=== PATIENT | male | born 1970 | race Caucasian/White ===

== ENCOUNTER 2018-04-20 13:45 | Emergency (ER) | payer BC ==
--- NOTE | 2018-04-20 14:13 | EDM.PDOC ---
ED HPI GENERAL MEDICAL PROBLEM - General Chief Complaint: Cardiovascular Problem Stated Complaint: DIZZY,SOB,CHEST PAIN Time Seen by Provider: 04/20/18 14:06 Source of Information: Reports: Patient History Limitations: Reports: No Limitations - History of Present Illness INITIAL COMMENTS - FREE TEXT/NARRATIVE: Patient is a 47-year-old gentleman who presents to the emergency department this afternoon with a complaint of chest pain and shortness of breath. Patient states that this morning while working. He was lifting material and developed left lower chest discomfort. Patient states that this is been going on and off for the past month. He states it occurs with activity and resolves spontaneously with rest. Patient describes pain as a squeezing sensation and localized to left lower chest. Patient states recently he has also feels short of breath with moderate ambulation. Patient denies family history of early cardiac disease, fever, nausea, vomiting, diarrhea, abdominal pain, out of country travel, any trauma, headache, anxiety or panic attacks. Onset: Gradual Duration: Week(s): Location: Reports: Chest Quality: Reports: Other (Pressure) Improves with: Reports: Rest Worsens with: Reports: Other (Activity) Context: Reports: Activity Associated Symptoms: Reports: Chest Pain, Shortness of Breath, Weakness. Denies : Cough, cough w sputum, Fever/Chills, Headaches, Nausea/Vomiting - Related Data Allergies Allergy/AdvReac Type Severity Reaction Status Date / Time Sulfa (Sulfonamide Allergy Rash Verified 04/20/18 14:12 Antibiotics) Home Meds: Home Meds . [No Known Home Meds] 04/20/18 [History] ED ROS GENERAL - Review of Systems Review Of Systems: ROS reveals no pertinent complaints other than HPI. Constitutional: Reports: Fatigue HEENT: Reports: No Symptoms Respiratory: Reports: No Symptoms Cardiovascular: Reports: Chest Pain, Dyspnea on Exertion Endocrine: Reports: No Symptoms GI/Abdominal: Reports: No Symptoms : Reports: No Symptoms Musculoskeletal: Reports: No Symptoms Skin: Reports: No Symptoms Neurological: Reports: No Symptoms Psychiatric: Reports: No Symptoms Hematologic/Lymphatic: Reports: No Symptoms Immunologic: Reports: No Symptoms ED EXAM, GENERAL - Physical Exam Exam: See Below Exam Limited By: No Limitations General Appearance: Alert, WD/WN, No Apparent Distress Eye Exam: Bilateral Eye: Normal Inspection Throat/Mouth: Normal Inspection, Normal Oropharynx, No Airway Compromise Head: Atraumatic, Normocephalic Neck: Normal Inspection, Supple Respiratory/Chest: No Respiratory Distress, Lungs Clear, Normal Breath Sounds, No Accessory Muscle Use, Chest Non-Tender Cardiovascular: Regular Rate, Rhythm, No Murmur GI/Abdominal: Normal Bowel Sounds, Soft, Non-Tender Back Exam: Normal Inspection. No: CVA Tenderness (L), CVA Tenderness (R) Extremities: Normal Inspection, Normal Range of Motion, Non-Tender, No Pedal Edema Neurological: Alert, Oriented, Normal Cognition Psychiatric: Normal Affect, Normal Mood Skin Exam: Warm, Dry, Intact, Normal Color, No Rash Lymphatic: No Adenopathy EKG INTERPRETATION EKG Date: 04/20/18 Time: 14:00 Rhythm: NSR Rate (Beats/Min): 92 [place]: Normal P-Wave: Present QRS: Normal ST-T: Normal QT: Normal Comparison: NA - No Prior EKG Course - Orders/Labs/Meds Orders: Active Orders 24 hr Category Date Time Status Chest 1V Frontal [CR] Stat Exams 04/20/18 14:06 Ordered CBC WITH AUTO DIFF [HEME] Stat Lab 04/20/18 14:06 Ordered COMPREHENSIVE METABOLIC PN,CMP [CHEM] Stat Lab 04/20/18 14:06 Ordered INR,PT,PROTHROMBIN TIME [COAG] Stat Lab 04/20/18 14:06 Ordered LIPASE [CHEM] Stat Lab 04/20/18 14:06 Ordered MAGNESIUM [CHEM] Stat Lab 04/20/18 14:06 Ordered PTT,PARTIAL THROMBOPLSTIN TIME [COAG] Stat Lab 04/20/18 14:06 Ordered TROPONIN I [CHEM] Stat Lab 04/20/18 14:06 Ordered - Radiology Interpretation Free Text/Narrative:: Chest x-ray shows no acute cardio pulmonary process - Re-Assessments/Exams Free Text/Narrative Re-Assessment/Exam: 04/20/18 14:48 Patient afebrile, nontoxic appearing, vital signs stable, chest pain, resolved. Stressed in detail to patient the need for follow-up with primary care provider. Patient to be given information for Dr. Arelis Brooks will follow-up next available. Departure - Departure Time of Disposition: 14:51 Disposition: Home, Self-Care 01 Condition: Good Clinical Impression: Atypical chest pain Instructions: Nonspecific Chest Pain, [id number], Dehydration, Adult, Easy-to -Read Referrals: PCP,None [Primary Care Provider] - Todd-Arelis Perrin MD [Physician] - Forms: ED Department Discharge Additional Instructions: Follow-up with Dr. Brooks. Contact clinic today or tomorrow for appointment time. - My Orders Last 24 Hours: My Active Orders 04/20/18 14:06 Chest 1V Frontal [CR] Stat CBC WITH AUTO DIFF [HEME] Stat COMPREHENSIVE METABOLIC PN,CMP [CHEM] Stat INR,PT,PROTHROMBIN TIME [COAG] Stat LIPASE [CHEM] Stat MAGNESIUM [CHEM] Stat PTT,PARTIAL THROMBOPLSTIN TIME [COAG] Stat TROPONIN I [CHEM] Stat - Assessment/Plan Last 24 Hours: My Active Orders 04/20/18 14:06 Chest 1V Frontal [CR] Stat CBC WITH AUTO DIFF [HEME] Stat COMPREHENSIVE METABOLIC PN,CMP [CHEM] Stat INR,PT,PROTHROMBIN TIME [COAG] Stat LIPASE [CHEM] Stat MAGNESIUM [CHEM] Stat PTT,PARTIAL THROMBOPLSTIN TIME [COAG] Stat TROPONIN I [CHEM] Stat Assessment:: Atypical chest pain Plan: Follow-up with PCP
[2018-04-20 14:31] LABS: CHLORIDE,CL 104 mmol/L (98-115); SODIUM,NA 147 mmol/L (136-145)
== END 2018-04-20 15:00 | disposition home or self-care (01) ==
LOC: KA.ED 13:45
DX: R07.89 Other chest pain (principal); Z88.2 Allergy status to sulfonamides
CPT/HCPCS: 36415; 71045; 80053; 82550; 83690; 83735; 84484; 85025; 85610; 85730; 99285

== ENCOUNTER 2023-04-04 13:23 | Emergency (ER) | payer OTHER ==
[2023-04-04 13:45] LABS: BASOPHILS ABSOLUTE AUTO 0.04 10^3/uL (0.00-0.10); BASOPHILS PERCENT AUTO 0.5 % (0.0-1.0); EOSINOPHILS ABSOLUTE AUTO 0.07 10^3/uL (0.10-0.30); EOSINOPHILS PERCENT AUTO 0.9 % (1.0-3.0); HEMATOCRIT 44.2 % (40.0-52.0); HEMOGLOBIN 14.9 g/dL (13.0-17.0); IMMATURE GRAN ABSOLUTE AUTO 0.04 10^3/uL (0.00-0.50); IMMATURE GRAN PERCENT AUTO 0.5 % (0.0-5.0); LYMPHOCYTES ABSOLUTE AUTO 1.54 10^3/uL (1.00-4.00); LYMPHOCYTES PERCENT AUTO 20.3 % (20.0-40.0); MEAN CORPUSCULAR HGB CONC 33.7 g/dL (32.0-36.0); MEAN CORPUSCULAR VOLUME 89.1 fL (82.0-92.0); MEAN PLATELET VOLUME 9.3 fL (7.4-10.4); MONOCYTES ABSOLUTE AUTO 0.49 10^3/uL (0.10-0.80); MONOCYTES PERCENT AUTO 6.5 % (2.0-8.0); NEUTROPHILS ABSOLUTE AUTO 5.39 10^3/uL (2.50-7.00); NEUTROPHILS PERCENT AUTO 71.3 % (50.0-70.0); PLATELET COUNT,PLT 231 10^3/uL (150-400); RED BLOOD CELL COUNT 4.96 10^6/uL (4.50-6.00); RED CELL DISTRIBUTION WIDTH 12.3 % (11.5-14.5); WHITE BLOOD CELL COUNT,WBC 7.57 10^3/uL (5.00-10.00)
[2023-04-04] MEDS ORDERED: Sodium Chloride 0.9% 10 ML Syringe FLUSH PRN (13:52)
[2023-04-04 14:03] LABS: ALANINE AMINOTRANSFERASE,ALT 38 U/L (14-63); ALBUMIN 3.77 g/dL (3.40-5.00); ALKALINE PHOSPHATASE 97 U/L (46-116); ANION GAP 13.5 mmol/L (5-15); ASPARTATE AMNIOTRANSFERASE,AST 18 U/L (15-37); BILIRUBIN TOTAL 0.4 mg/dL (0.2-1.0); BLOOD UREA NITROGEN,BUN 16 mg/dL (7-18); CALCIUM 8.9 mg/dL (8.7-10.3); CARBON DIOXIDE,CO2 26.5 mmol/L (21.0-32.0); CHLORIDE,CL 107 mmol/L (98-107); CREATININE 1.06 mg/dL (0.51-1.17); ESTIMATED GFR 85 mL/min (>=60); GLUCOSE RANDOM 153 mg/dL (70-140); PROTEIN TOTAL,TP 6.9 g/dL (6.4-8.2); SODIUM,NA 143 mmol/L (136-145)
[2023-04-04] MEDS: Enalaprilat 1.25 MG/ML SDV IVPUSH ONE (14:35)
== END 2023-04-04 15:29 | disposition home or self-care (01) ==
LOC: KA.ED 13:23
DX: R73.9 Hyperglycemia, unspecified (principal); R55 Syncope and collapse; I16.0 Hypertensive urgency; Z88.2 Allergy status to sulfonamides
CPT/HCPCS: 70450; 71045; 80053; 82550; 84484; 85025; 93010; 96374; 99284; 99284-25; J3490

== ENCOUNTER 2024-11-09 11:31 | Emergency (ER) | payer OTHER ==
[2024-11-09] MEDS ORDERED: Naloxone 0.4 MG/ML SDV IVPUSH PRN ×2 (11:44→13:14)
[2024-11-09] MEDS: Ondansetron 4 MG/2 ML SDV IVPUSH ONE (11:50)
[2024-11-09 11:52] LABS: BASOPHILS ABSOLUTE AUTO 0.02 10^3/uL (0.00-0.10); BASOPHILS PERCENT AUTO 0.2 % (0.0-1.0); EOSINOPHILS ABSOLUTE AUTO 0.02 10^3/uL (0.10-0.30); EOSINOPHILS PERCENT AUTO 0.2 % (1.0-3.0); HEMATOCRIT 49.4 % (40.0-52.0); HEMOGLOBIN 16.7 g/dL (13.0-17.0); LYMPHOCYTES ABSOLUTE AUTO 0.84 10^3/uL (1.00-4.00); LYMPHOCYTES PERCENT AUTO 10.3 % (20.0-40.0); MEAN CORPUSCULAR HEMOGLOBIN 30.4 pg (27.0-31.0); MEAN CORPUSCULAR HGB CONC 33.8 g/dL (32.0-36.0); MEAN PLATELET VOLUME 9.3 fL (7.4-10.4); MONOCYTES ABSOLUTE AUTO 0.94 10^3/uL (0.10-0.80); MONOCYTES PERCENT AUTO 11.5 % (2.0-8.0); NEUTROPHILS ABSOLUTE AUTO 6.36 10^3/uL (2.50-7.00); NEUTROPHILS PERCENT AUTO 77.8 % (50.0-70.0); PLATELET COUNT,PLT 229 10^3/uL (150-400); RED BLOOD CELL COUNT 5.49 10^6/uL (4.50-6.00); RED CELL DISTRIBUTION WIDTH 12.3 % (11.5-14.5); WHITE BLOOD CELL COUNT,WBC 8.18 10^3/uL (5.00-10.00)
[2024-11-09] MEDS: HYDROmorphone 1 MG/ML Syringe IVPUSH ONE ×3 (11:54→13:29)
[2024-11-09] MEDS: Sodium Chloride 0.9% 10 ML Syringe FLUSH PRN (11:56)
[2024-11-09 12:08] LABS: ALBUMIN 4.18 g/dL (3.40-5.00); ANION GAP 14.1 mmol/L (5-15); BILIRUBIN TOTAL 0.8 mg/dL (0.2-1.0); CALCIUM 9.3 mg/dL (8.7-10.3); CREATININE 1.02 mg/dL (0.51-1.17); EST CRCL DRUG DOSING (CG) 90.23 mL/min; POTASSIUM,K 4.1 mmol/L (3.5-5.1); PROTEIN TOTAL,TP 7.7 g/dL (6.4-8.2)
[2024-11-09] MEDS: Sodium Chloride 0.9% 50 ML IV SCH (12:20)
[2024-11-09] MEDS: Sodium Chloride 0.9% 1,000 ML IV ONE (12:23)
[2024-11-09] MEDS: Iopamidol 755 Mg/ML 100 ML Bottle IV ONE (12:27)
[2024-11-09] MEDS: Benzocaine 20% Topical Spray UD MUCMEM ONE (13:35)
[2024-11-09] MEDS: Benzocaine 20% Topical Spray UD ONE (13:44)
[2024-11-09] MEDS: Sodium Chloride 0.9% 1,000 ML IV SCH (14:09)
== END 2024-11-10 14:28 ==
LOC: KA.ED 11:31
DX: K57.30 Diverticulosis of large intestine without perforation or abscess without bleeding (principal); K56.609 Unspecified intestinal obstruction, unspecified as to partial versus complete obstruction; J45.909 Unspecified asthma, uncomplicated; Z90.49 Acquired absence of other specified parts of digestive tract; Z88.2 Allergy status to sulfonamides
CPT/HCPCS: 36415; 43752; 71045; 74177; 80053; 82150; 83605; 83690; 85025; 96361; 96374; 96375; 96376; 99284; 99285-25; A9270-GY; J1171; J2405; J3490; J7030; Q9967